=== PATIENT | male | born 1960 | race Two or more races ===

== ENCOUNTER 2024-09-10 17:18 | Inpatient (IN) | payer OTHER ==
[~2024-09-10] VITALS: Ht 167.6 cm; Wt 77.3 kg
[2024-09-10] MEDS ORDERED: MIRT-149 PO (17:50)
[2024-09-10] MEDS ORDERED: CYAN-42 IM (17:51)
[2024-09-10] MEDS ORDERED: DICL100G60 TP (17:51)
[2024-09-10] MEDS ORDERED: RISP-31 PO (17:51)
[2024-09-10] MEDS ORDERED: METF-1211 PO (17:51)
[2024-09-10] MEDS ORDERED: RANO500T27 PO (17:51)
[2024-09-10] MEDS ORDERED: AMLO-258 PO (17:51)
[2024-09-10] MEDS ORDERED: CARV25 PO (17:51)
[2024-09-10] MEDS ORDERED: BUSP10TA23 PO (17:51)
[2024-09-10] MEDS ORDERED: CALC500T37 PO (17:51)
[2024-09-10] MEDS ORDERED: HYDR50CA7 PO (17:51)
[2024-09-10] MEDS ORDERED: ASPI-1444 PO (17:51)
[2024-09-10] MEDS ORDERED: PARO-38 PO (17:51)
[2024-09-10] MEDS ORDERED: ATOR40TA28 PO (17:51)
[2024-09-10] MEDS ORDERED: PANT-31 PO (17:51)
[2024-09-10] MEDS ORDERED: ISOS60TA77 PO (17:51)
[2024-09-10] MEDS ORDERED: NITR0.3T12 SL (17:51)
[2024-09-10] MEDS ORDERED: FOLI-130 PO (17:51)
[2024-09-10 18:24] LABS: BASOPHILS % (AUTO) 0.6 % (0.0-2.0); EOSINOPHILS % (AUTO) 4.8 % (1.0-6.0); HEMATOCRIT 45.5 % (41-53); HEMOGLOBIN 15.4 g/dL (13.5-17.5); LYMPHOCYTES # (AUTO) 1.7 K/uL (1.0-4.8); LYMPHOCYTES % (AUTO) 29.7 % (22.0-44.0); MEAN CORPUSCULAR HEMOGLOBIN 30.3 pg (26.0-34.0); MEAN CORPUSCULAR HGB CONC 33.7 G/dL (31.0-37.0); MEAN CORPUSCULAR VOLUME 90 fL (80-100); MONOCYTES # (AUTO) 0.6 K/uL (0.1-1.0); MONOCYTES % (AUTO) 10.9 % (2.0-9.0); NEUTROPHILS # (AUTO) 3.1 K/uL (1.8-7.7); PLATELET COUNT (AUTO) 158 K/uL (150-450); RED BLOOD CELL COUNT(AUTO) 5.06 MIL/uL (4.50-5.90); RED CELL DISTRIBUTION WIDTH 15.3 % (11.5-14.5); WHITE BLOOD COUNT (AUTO) 5.7 K/uL (4.5-11.0)
[2024-09-10 18:39] LABS: B-TYPE NATRIURETIC PEPTIDE 11 pg/mL (0-100); TROPONIN I-HIGH SENSITIVITY 5 ng/L (<76)
[2024-09-10 19:47] LABS: APPEARANCE,URINE CLEAR (CLEAR); BILIRUBIN,URINE NEGATIVE (NEGATIVE); COLOR,URINE COLORLESS (YELLOW); GLUCOSE, URINE (UA) NEGATIVE (NEGATIVE); KETONES,URINE NEGATIVE (NEGATIVE); LEUKOCYTE ESTERASE ,URINE NEGATIVE (NEGATIVE); NITRATE,URINE NEGATIVE (NEGATIVE); OCCULT BLOOD,URINE NEGATIVE (NEGATIVE); PH,URINE 7.5 (5.0-8.0); PROTEIN,URINE NEGATIVE (NEGATIVE); SPECIFIC GRAVITIY, URINE 1.006 (1.003-1.030); UROBILINOGEN,URINE <=1.0 mg/dL (<=1.0)
[2024-09-10 19:55] LABS: GLUCOMETER DEV NAME(LOC) ERT.6; GLUCOSE,POINT OF CARE 99 MG/DL (70-110)
[2024-09-10] MEDS ORDERED: ZOLPIDEM TARTRATE 5 MG TABLET PO PRN (21:00)
[2024-09-10] MEDS ORDERED: ALBUTEROL SULFATE 2.5 MG/0.5 ML NEB SOLUTION NEB PRN (21:00)
[2024-09-10] MEDS: DICLOFENAC SODIUM 1% 100 GM GEL [2GM] TP SCH (21:00)
[2024-09-10] MEDS ORDERED: MAGNESIUM HYDROXIDE SUSPENSION 30 ML UDCUP PO PRN (21:00)
[2024-09-10] MEDS ORDERED: BISACODYL 10 MG RECTAL RECTAL SUPPOSITORY PR PRN (21:00)
[2024-09-10] MEDS ORDERED: ONDANSETRON HCL 4 MG/2 ML VIAL IVP PRN (21:00)
[2024-09-10] MEDS ORDERED: ACETAMINOPHEN 325 MG TABLET PO PRN (21:00)
[2024-09-10] MEDS ORDERED: IPRATROPIUM BROMIDE 0.5 MG/2.5 ML NEB SOLUTION NEB PRN (21:00)
[2024-09-10] MEDS ORDERED: HydrOXYzine PAMOATE 50 MG CAPSULE PO PRN (21:00)
[2024-09-10] MEDS ORDERED: NITROGLYCERIN 0.3 MG SUBLINGUAL TABLET #100 SL PRN (21:00)
[2024-09-10] MEDS: BusPIRone HCL 10 MG TABLET PO SCH (23:01)
[2024-09-10] MEDS: ATORVASTATIN CALCIUM 40 MG TABLET PO SCH (23:01)
[2024-09-10] MEDS: RANOLAZINE 500 MG ER TABLET PO SCH (23:01)
[2024-09-10] MEDS: MIRTAZAPINE 30 MG TABLET PO SCH (23:01)
[2024-09-10] MEDS: CARVEDILOL 25 MG TABLET PO SCH (23:01)
[2024-09-11] MEDS: HEPARIN SODIUM,PORCINE 5,000 UNITS/ML VIAL SQ SCH
[2024-09-11 02:53] VITALS: BP 129/76; PULSE 70; RESP 18; TEMP 97.7; O2SAT 96
[2024-09-11 07:10] LABS: ANION GAP 5 mmol/L (8-16); CALCIUM, TOTAL 8.6 mg/dL (8.8-10.5); CARBON DIOXIDE 33 mmol/L (22-29); CHLORIDE 105 mmol/L (98-107); CREATININE 1.02 mg/dL (0.60-1.30); GLOMERULAR FILTR. RATE CALC > 60 mL/min (>60); GLUCOSE,RANDOM 91 mg/dL (70-110); POTASSIUM 4.9 mmol/L (3.5-5.1); SODIUM SERUM 143 mmol/L (136-145); UREA NITROGEN, BLOOD 10 mg/dL (7-18)
[2024-09-11 08:38] VITALS: BP 137/79; PULSE 68; RESP 18; TEMP 97.7; O2SAT 96
[2024-09-11] MEDS: PANTOPRAZOLE SODIUM 40 MG DR TABLET PO SCH ×2 (09:00→09:31)
[2024-09-11] MEDS: PARoxetine HCL 20 MG TABLET PO SCH (09:31)
[2024-09-11] MEDS: ISOSORBIDE MONONITRATE 60 MG ER TABLET PO SCH (09:31)
[2024-09-11] MEDS: CALCIUM CARBONATE 500 MG CHEWABLE TABLET PO SCH (09:31)
[2024-09-11] MEDS: RisperiDONE 1 MG TABLET PO SCH (09:31)
[2024-09-11] MEDS: MetFORMIN HCL 500 MG TABLET PO SCH (09:31)
[2024-09-11] MEDS: ASPIRIN 81 MG DR TABLET PO SCH (09:32)
[2024-09-11] MEDS: AmLODIPine BESYLATE 10 MG TABLET PO SCH (09:32)
[2024-09-11] MEDS: FOLIC ACID 1 MG TABLET PO SCH (09:32)
[2024-09-11 16:24] VITALS: BP 110/68; PULSE 62; RESP 18; TEMP 98.1; O2SAT 95
[2024-09-11 20:09] VITALS: BP 108/60; PULSE 71; RESP 18; TEMP 98.2; O2SAT 93
[2024-09-12] MEDS: MIRTAZAPINE 15 MG TABLET PO SCH (00:30)
[2024-09-12 04:34] VITALS: BP 112/62; PULSE 72; RESP 18; O2SAT 93
[2024-09-12 08:00] VITALS: BP 126/72; PULSE 69; RESP 18; TEMP 97.8; O2SAT 94
[2024-09-12] MEDS ORDERED: DEXTROSE 50%-WATER 25 GM/50 ML SYRINGE IVP PRN (10:30)
[2024-09-12] MEDS ORDERED: INSULIN LISPRO 100 UNITS/ML SQ PRN (10:30)
[2024-09-12] MEDS: GABAPENTIN 100 MG CAPSULE PO SCH (11:23)
[2024-09-12 11:45] LABS: GLUCOMETER DEV NAME(LOC) 6S.2; GLUCOSE,POINT OF CARE 107 MG/DL (70-110)
[2024-09-12 18:50] LABS: GLUCOMETER DEV NAME(LOC) 6N.2B; GLUCOSE,POINT OF CARE 106 MG/DL (70-110)
[2024-09-12 19:50] VITALS: BP 111/61; PULSE 72; RESP 18; TEMP 98.1; O2SAT 95
[2024-09-12 21:41] LABS: GLUCOMETER DEV NAME(LOC) 6N.2B; GLUCOSE,POINT OF CARE 110 MG/DL (70-110)
[2024-09-13 04:58] VITALS: BP 116/69; PULSE 69; RESP 18; TEMP 97.8; O2SAT 94
[2024-09-13 06:05] LABS: GLUCOMETER DEV NAME(LOC) 6N.2B; GLUCOSE,POINT OF CARE 97 MG/DL (70-110)
[2024-09-13 09:19] VITALS: BP 136/83; PULSE 77; RESP 20; TEMP 97.5; O2SAT 95
[2024-09-13] MEDS ORDERED: GABA-1216 PO (13:11)
[2024-09-13] MEDS ORDERED: BISA10SU11 PR (13:25)
[2024-09-13] MEDS ORDERED: ACET-2247 PO (13:25)
[2024-09-13] MEDS ORDERED: MAGN-169 PO (13:26)
[2024-09-13 18:26] LABS: GLUCOMETER DEV NAME(LOC) 6S.1D; GLUCOSE,POINT OF CARE 88 MG/DL (70-110)
[2024-09-13 19:30] VITALS: BP 113/69; PULSE 67; RESP 20; TEMP 98; O2SAT 94
[2024-09-13 20:05] LABS: GLUCOMETER DEV NAME(LOC) 6S.2; GLUCOSE,POINT OF CARE 98 MG/DL (70-110)
[2024-09-14 05:41] LABS: GLUCOMETER DEV NAME(LOC) 6S.1D; GLUCOSE,POINT OF CARE 106 MG/DL (70-110)
== END 2024-09-13 21:25 | DRG 552 ==
LOC: EMS 17:18 → EDH 20:52 → 6N 09-11 02:52
PROVIDERS: ADMIT Hospitalist; ATTEND Hospitalist
DX: M51.16 Intervertebral disc disorders with radiculopathy, lumbar region (principal); M48.061 Spinal stenosis, lumbar region without neurogenic claudication; I10 Essential (primary) hypertension; E11.9 Type 2 diabetes mellitus without complications; E78.00 Pure hypercholesterolemia, unspecified; F32.A Depression, unspecified; I25.10 Atherosclerotic heart disease of native coronary artery without angina pectoris; F41.9 Anxiety disorder, unspecified; Z79.899 Other long term (current) drug therapy; Z95.0 Presence of cardiac pacemaker; Z79.84 Long term (current) use of oral hypoglycemic drugs; Z79.82 Long term (current) use of aspirin; Z87.891 Personal history of nicotine dependence
CPT/HCPCS: 72148; 80048; 81003; 82962; 83880; 84484; 85025; 93005; 96372; 97116; 97162; 97530; 99285; G0378; J1644